=== PATIENT | female | born 1990 | race African-American/Black ===

== ENCOUNTER 2021-01-23 17:21 | Emergency (ER) | payer MEDICAID ==
[2021-01-23] MEDS ORDERED: Sodium Chloride 0.9% 1,000 ML ONE (17:52)
[2021-01-23 18:08] LABS: Bilirubin Small (Negative); Blood, Urine Negative (Negative); Clarity Clear (Clear); Glucose, Urine (Dipstick) Negative (Negative); Ketone, Urine Trace mg/dL (Negative); Leukocyte Negative (Negative); Nitrite Negative (Negative); Protein, Urine (Dipstick) 30 mg/dL (Neg-Trace); Urobilinogen 0.2 mg/dL (Less than 2); pH, Urine 5.5 (5.0-9.0)
[2021-01-23 18:13] LABS: Bacteria/HPF None Seen HPF (None Seen); RBC/HPF None Seen HPF (0-3); Specific Gravity, Urine 1.037 (1.002-1.036); WBC/HPF None Seen HPF (0-3)
[2021-01-23 18:14] LABS: Mucous/LPF Rare LPF (<2+)
[2021-01-23 18:20] LABS: #Monocytes 0.8 thou/uL (0.11-0.59); #Neutrophils 10.6 thou/uL (1.40-6.50); %Basophils 0.2 % (0.0-1.0); %Eosinophils 0.2 % (0.0-10.0); %Lymphocytes 7.7 % (21.0-51.0); %Monocytes 6.4 % (0.0-10.0); %Neutrophils 85.5 % (42.0-75.0); Hemoglobin 9.4 g/dL (12.0-16.0); Mean Corpuscular HGB CONC 28.1 g/dL (32.0-36.0); Mean Corpuscular Hemoglobin 20.8 pg (27.0-31.0); Mean Corpuscular Volume 73.9 fL (78.0-98.0); Mean Platelet Volume 7.3 fL (7.4-10.4); Platelet Count 258 thou/uL (130-400); RBC Distribution Width 20.7 % (11.5-14.5); Red Blood Cell (RBC) Count 4.53 mill/uL (4.20-5.40); White Blood Cell (WBC) Count 12.3 thou/uL (4.8-10.8)
[2021-01-23 18:22] LABS: Anisocytosis MODERATE=16-30 cells (100X) (0-5/hpf); Bite Cells SLIGHT = 2-5 cells (100X) (0-1/hpf); Hypochromia MODERATE=16-30 cells (100X) (0-5/hpf); Microcytosis MODERATE=15-30 cells (100X) (0-5/hpf); Ovalocytes MODERATE= 6-15 cells (100X) (0-1/hpf); Poikilocytosis MODERATE=16-30 cells (100X) (0-5/hpf); Stomatocytes SLIGHT = 2-5 cells (100X) (0-1/hpf); Tear Drops SLIGHT = 2-5 cells (100X) (0-1/hpf)
[2021-01-23 18:23] LABS: Platelet Morphology Comment Appears Adequate
[2021-01-23 18:24] LABS: MDiff Complete? YES; Manual Diff?? NO
[2021-01-23 18:25] LABS: ALT (SGPT) 8 U/L (8-55); AST (SGOT) 13 U/L (5-34); Albumin 3.8 g/dL (3.5-5.0); Alkaline Phosphatase 53 U/L (40-110); Anion Gap 15 mmol/L (10-20); BUN (Urea Nitrogen) 8 mg/dL (7.0-18.7); Bilirubin, Total 0.4 mg/dL (0.2-1.2); Calc. Creatinine Clearance 0 mL/min (70-130); Calcium 9.4 mg/dL (7.8-10.44); Carbon Dioxide 18 mmol/L (22-29); Chloride 103 mmol/L (98-107); Globulin 4.2 g/dL (2.4-3.5); Glucose 137 mg/dL (70-105); Potassium 3.8 mmol/L (3.5-5.1); Sodium 132 mmol/L (136-145)
[2021-01-23] MEDS ORDERED: AMOXicillin 250 MG CAP ONE (19:20)
[2021-01-23 19:24] LABS: Macrocytosis MODERATE=16-30 cells (100X) (0-5/hpf)
== END 2021-01-23 19:30 | disposition home or self-care (01) ==
LOC: NAV ERS 17:21
DX: O99.612 Diseases of the digestive system complicating pregnancy, second trimester (principal); K02.9 Dental caries, unspecified; O99.012 Anemia complicating pregnancy, second trimester; D64.9 Anemia, unspecified; O99.282 Endocrine, nutritional and metabolic diseases complicating pregnancy, second trimester; E86.0 Dehydration; Z3A.22 22 weeks gestation of pregnancy
CPT/HCPCS: 36415; 80053; 81003; 81015; 85025; 99284; J7050

== ENCOUNTER 2024-03-04 15:18 | Emergency (ER) | payer MEDICAID, OTHER, SELFPAY ==
[2024-03-04] MEDS ORDERED: Acetaminophen 500 MG TAB ONE (15:55)
[2024-03-04 16:06] LABS: #Basophils 0.1 thou/uL (0.0-0.2); #Eosinphils 0.2 thou/uL (0.0-0.7); #Lymphocytes 2.2 thou/uL (1.20-3.40); #Monocytes 0.4 thou/uL (0.11-0.59); %Basophils 0.7 % (0.0-1.0); %Eosinophils 2.5 % (0.0-10.0); %Lymphocytes 28.1 % (21.0-51.0); %Monocytes 4.7 % (0.0-10.0); %Neutrophils 64.1 % (42.0-75.0); Hematocrit 43.8 % (36.0-47.0); Hemoglobin 13.9 g/dL (12.0-16.0); Mean Corpuscular HGB CONC 31.9 g/dL (32.0-36.0); Mean Corpuscular Hemoglobin 29.6 pg (27.0-31.0); Mean Corpuscular Volume 92.8 fl (78.0-98.0); Mean Platelet Volume 8.5 fL (7.4-10.4); Platelet Count 235 10x3/uL (130-400); RBC Distribution Width 12.6 % (11.5-14.5); Red Blood Cell (RBC) Count 4.72 mill/uL (4.20-5.40); White Blood Cell (WBC) Count 7.8 10x3/uL (4.8-10.8)
[2024-03-04 16:22] LABS: Troponin I Less than 0.010 ng/mL (< 0.028)
[2024-03-04 16:24] LABS: ALT (SGPT) 18 U/L (8-55); AST (SGOT) 14 U/L (5-34); Albumin 3.8 g/dL (3.5-5.0); Alkaline Phosphatase 53 U/L (40-110); Anion Gap 15 mmol/L (10-20); BUN (Urea Nitrogen) 11 mg/dL (7.0-18.7); Bilirubin, Total 0.9 mg/dL (0.2-1.2); Calc. Creatinine Clearance 0 mL/min (70-130); Calcium 9.6 mg/dL (7.8-10.44); Carbon Dioxide 18 mmol/L (22-29); Chloride 109 mmol/L (98-107); Estimated GFR 98; Glucose 105 mg/dL (70-105); Potassium 3.6 mmol/L (3.5-5.1); Protein, Total 7.8 g/dL (6.0-8.3); Sodium 138 mmol/L (136-145)
== END 2024-03-04 17:46 | disposition home or self-care (01) ==
LOC: NAV ERS 15:18
DX: R07.89 Other chest pain (principal); F41.9 Anxiety disorder, unspecified
CPT/HCPCS: 71046; 80053; 84484; 85025; 93005; 94760

== ENCOUNTER 2025-01-31 07:14 | Emergency (ER) | payer SELFPAY ==
[2025-01-31 07:37] LABS: Glucose, Urine (Dipstick) Negative (Negative); Leukocyte Negative (Negative); Pregnancy Test - Urine (BHCG) Negative (Negative); Pregu Control Background? CLEAR/WHITE (CLR/WHITE); Pregu Control Bar Appear? YES (CONTROL BAR); Protein, Urine (Dipstick) Negative (Neg-Trace); Specific Gravity, Urine 1.015 (1.005-1.030)
[2025-01-31 07:43] LABS: Bacteria/HPF Rare-Few HPF (None Seen); CAUTI Indications for Culture Pelvic or flank pain; Urine Culture Reflex No No; WBC/HPF 0-3 HPF (0-3)
[2025-01-31] MEDS ORDERED: Ketorolac Tromethamine 30 MG (1 mL) VIAL ONE (08:00)
[2025-01-31] MEDS ORDERED: Ondansetron PF 4 MG/2 ML Vial ONE (08:01)
[2025-01-31 08:21] LABS: #Basophils 0.0 thou/uL (0.0-0.2); #Eosinophils 0.1 thou/uL (0.0-0.7); #Lymphocytes 1.6 thou/uL (1.20-3.40); #Monocytes 0.5 thou/uL (0.11-0.59); #Neutrophils 4.1 thou/uL (1.40-6.50); %Basophils 0.6 % (0.0-1.0); %Eosinophils 2.1 % (0.0-10.0); %Lymphocytes 25.8 % (21.0-51.0); %Monocytes 7.6 % (0.0-10.0); %Neutrophils 63.9 % (42.0-75.0); Hematocrit 38.9 % (36.0-47.0); Hemoglobin 12.8 g/dL (12.0-16.0); Mean Corpuscular Hemoglobin 29.3 pg (27.0-31.0); Mean Corpuscular Volume 88.8 fl (78.0-98.0); Platelet Count 233 10x3/uL (130-400); Red Blood Cell (RBC) Count 4.38 mill/uL (4.20-5.40); White Blood Cell (WBC) Count 6.4 10x3/uL (4.8-10.8)
[2025-01-31 08:37] LABS: ALT (SGPT) 13 U/L (Less than 34); AST (SGOT) 22 U/L (11-34); Albumin 4.0 g/dL (3.1-4.5); Alkaline Phosphatase 47 U/L (40-110); Anion Gap 12 mmol/L (10-20); BUN (Urea Nitrogen) 7 mg/dL (7.0-18.7); Bilirubin, Total 0.8 mg/dL (0.3-1.2); Calc. Creatinine Clearance 0 mL/min (70-130); Calcium 9.3 mg/dL (7.8-10.44); Carbon Dioxide 23 mmol/L (22-29); Chloride 104 mmol/L (98-107); Globulin 3.6 g/dL (2.4-3.5); Glucose 105 mg/dL (70-105); Lipase 13 U/L (8-78); Potassium 3.8 mmol/L (3.5-5.1); Sodium 135 mmol/L (136-145)
[2025-01-31] MEDS ORDERED: Iopamidol 370 76% 100 ML VIAL ONE (09:00)
== END 2025-01-31 09:53 | disposition home or self-care (01) ==
LOC: NAV ERS 07:14
DX: R10.32 Left lower quadrant pain (principal); L90.5 Scar conditions and fibrosis of skin
CPT/HCPCS: 74177; 80053; 81001; 81025; 83690; 85025; 96374; 96375; J1885; J2405; J3010; Q9967